=== PATIENT | female | born 1985 | race African-American/Black ===

== ENCOUNTER 2019-06-11 21:07 | Emergency (ER) | payer MEDICAID ==
[~2019-06-11] VITALS: Ht 162.6 cm; Wt 83.0 kg
[2019-06-11 21:10] VITALS: Ht 162.6 cm; Wt 83.0 kg
[2019-06-11 22:36] VITALS: BP 137/76
== END 2019-06-11 22:36 | disposition home or self-care (01) ==
LOC: ED 21:07
DX: O26.891 Other specified pregnancy related conditions, first trimester (principal); K08.89 Other specified disorders of teeth and supporting structures; Z3A.10 10 weeks gestation of pregnancy